=== PATIENT | male | born 1995 | race Two or more races ===

== ENCOUNTER 2021-07-20 08:25 | Emergency (ER) | payer OTHER ==
[~2021-07-20] VITALS: Ht 167.6 cm; Wt 64.0 kg
[2021-07-20 08:45] VITALS: BP 106/68
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
--- NOTE | 2021-07-20 09:43 | NUR ---
ERP AT BS.
[2021-07-20] MEDS ORDERED: DIPH,PERTUSS(ACELL),TET VAC/PF 0.5 ML IM-VACC ONE ×2 (09:56→10:00)
--- NOTE | 2021-07-20 10:20 | NUR ---
PT AMBULATED TO XR.
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
== END 2021-07-20 11:22 | disposition home or self-care (01) ==
LOC: ED 11:20
DX: S60.221A Contusion of right hand, initial encounter (principal); X58.XXXA Exposure to other specified factors, initial encounter; Y93.89 Activity, other specified; Y92.009 Unspecified place in unspecified non-institutional (private) residence as the place of occurrence of the external cause; Y99.8 Other external cause status
CPT/HCPCS: 90471; 90715